=== PATIENT | female | born 1985 | race Caucasian/White ===

== ENCOUNTER 2020-04-26 14:10 | Outpatient (CLI) | payer MEDICAID | END 2020-04-26 23:59 | disposition home or self-care (01) | LOC: LAB.R 14:10 | PROVIDERS: ATTEND Emergency Medicine | DX: M70.42 Prepatellar bursitis, left knee (principal) | CPT/HCPCS: 81599; 87070; 87075; 87205 ==

== ENCOUNTER 2020-04-27 08:10 | Emergency (ER) | payer SELFPAY ==
--- NOTE | 2020-04-27 08:29 | ED Physician Documentation ---
PD HPI LOWER EXT INJURY - Stated complaint Stated Complaint: L KNEE PX - Chief complaint Chief Complaint: Ext Problem - History of Present Illness PD HPI LOW EXT INJURY LOCATION: Left, Knee Type of injury: Other (hurting) Where injury occurred: Home Timing - onset: How many days ago (3) Timing - duration: Days (3) Timing - details: Gradual onset, Still present Improved by: Rest, Immobilization Worsened by: Moving, Palpating Associated symptoms: Swelling, Discolored Contributing factors: No: Anticoagulated Similar symptoms before: Has not had sx before Recently seen: Clinic - Additional information Additional information: 34-year-old female who began to have some pain in her left knee 2 days ago spontaneously went [place]. Her knee was red and swollen and an arthrocentesis was done with removal of small amount of fluid. The patient was started on Bactrim and a culture is pending. She vomited her Bactrim Review of Systems Constitutional: reports: Myalgias. denies: Fever Eyes: denies: Decreased vision Ears: denies: Ear pain, Drainage/discharge Nose: denies: Rhinorrhea / runny nose, Congestion Throat: denies: Sore throat Cardiac: denies: Chest pain / pressure, Palpitations Respiratory: denies: Dyspnea, Cough GI: reports: Abdominal Pain, Nausea, Vomiting : denies: Dysuria, Frequency Skin: denies: Rash Musculoskeletal: reports: Joint pain, Joint swelling, Pain with weight bearing. denies: Neck pain, Back pain Neurologic: denies: Generalized weakness, Focal weakness, Numbness, Syncope PD PAST MEDICAL HISTORY - Past Medical History Past Medical History: Yes Cardiovascular: None Respiratory: None Neuro: None Endocrine/Autoimmune: None GI: None FINANCIAL REPORTING CONSULTANT: None : None HEENT: None Psych: None Musculoskeletal: None Derm: None - Past Surgical History Past Surgical History: Yes - Present Medications Home Medications: Ambulatory Orders Medication Instructions Recorded Confirmed Cephalexin [Keflex] 500 mg PO Q6H #28 capsule 04/27/20 Hydrocodone/Acetaminophen 1 - 2 each PO Q6H PRN #14 tablet 04/27/20 [Hydrocodon-Acetaminophen 5-325] Sulfamethox/Trimeth 800/160 04/27/20 [Bactrim Ds] - Allergies Allergies/Adverse Reactions: Allergies Allergy/AdvReac Type Severity Reaction Status Date / Time No Known Drug Allergies Allergy Verified 04/27/20 08:18 - Social History Does the pt smoke?: No Smoking Status: Never smoker Does the pt drink ETOH?: No Does the pt have substance abuse?: No - Immunizations Immunizations are current?: Yes PD ED PE NORMAL - Vitals Vital signs reviewed: Yes (tachy and hypertensive ) - General General: Alert and oriented X 3, Well developed/nourished, Other (34-year-old female who is in tears and pain.She appears anxious) - HEENT HEENT: Atraumatic, PERRL, EOMI - Neck Neck: Supple, no meningeal sign, No bony TTP - Respiratory Respiratory: No respiratory distress - Derm Derm: Normal color, Warm and dry, No rash - Extremities Extremities: No deformity, No edema, Other (There is tenderness warmth and erythema to the left knee. There is some mild swelling the patella is not ballotable and there is no direct joint effusion palpable. The patella is tender there is erythema overlying the patellar area extending medially and laterally. 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, No motor deficit, No sensory deficit, Normal speech Eye Opening: Spontaneous Motor: Obeys Commands Verbal: Oriented GCS Score: 15 - Psych Psych: Normal mood Results - Vitals Vitals: Vital Signs - 24 hr 04/27/20 04/27/20 04/27/20 08:16 08:18 10:18 Temperature 37.4 C Heart Rate 106 H 96 96 Respiratory 18 16 16 Rate Blood Pressure 123/59 L 128/60 136/74 H O2 Saturation 99 99 97 04/27/20 04/27/20 04/27/20 12:18 14:00 15:52 Temperature 36.8 C Heart Rate 92 90 96 Respiratory 16 18 16 Rate Blood Pressure 138/70 H 136/74 H 136/78 H O2 Saturation 97 99 96 Oxygen O2 Source Room air - Labs Labs: Laboratory Tests 04/27/20 04/27/20 04/27/20 09:16 09:16 09:16 WBC 16.1 H RBC 3.67 L Hgb 11.4 L Hct 32.9 L MCV 89.6 MCH 31.1 H MCHC 34.7 RDW 12.7 Plt Count 184 MPV 10.6 Neut # (Auto) 15.4 H Lymph # (Auto) 0.1 L [place] # (Auto) 0.5 Eos # (Auto) 0.0 Baso # (Auto) 0.1 Absolute Nucleated RBC 0.00 Nucleated RBC % 0.0 ESR Sodium 134 L Potassium 3.4 L Chloride 97 L Carbon Dioxide 23 Anion Gap 14.0 H BUN 20 Creatinine 0.8 Estimated GFR (MDRD) 82 L Glucose 144 H Lactic Acid 1.0 Uric Acid 3.5 Calcium 8.7 Total Bilirubin 0.4 AST 23 ALT 26 Alkaline Phosphatase 39 L C-Reactive Protein 9.7 H Total Protein 6.9 Albumin 5.0 Globulin 1.9 L Albumin/Globulin Ratio 2.6 H Lipase 33 04/27/20 09:16 WBC RBC Hgb Hct MCV MCH MCHC RDW Plt Count MPV Neut # (Auto) Lymph # (Auto) [place] # (Auto) Eos # (Auto) Baso # (Auto) Absolute Nucleated RBC Nucleated RBC % ESR 21 H Sodium Potassium Chloride Carbon Dioxide Anion Gap BUN Creatinine Estimated GFR (MDRD) Glucose Lactic Acid Uric Acid Calcium Total Bilirubin AST ALT Alkaline Phosphatase C-Reactive Protein Total Protein Albumin Globulin Albumin/Globulin Ratio Lipase PD MEDICAL DECISION MAKING - ED course Complexity details: reviewed results, re-evaluated patient, considered differential, d/w patient ED course: 34-year-old female with right left knee pain Appears to have cellulitis that is not improving and she appears to have intolerance to sulfamethoxazole trimethoprim. She has been vomiting this all night. Here in the emergency department an IV is begun she is given saline and she is given Toradol for pain. She has inadequate relief with Toradol and is given Dilaudid with improvement.We were unable to obtain results from the cell count from a specimen obtained yesterday and we were eventually able to track down Dr. Gregory donald and he was able to provide us with details of the visit. He indicates that she had pain and redness he thought she had cellulitis and because she had difficulty with pain with flexion extension he tapped the knee got a small amount of clear fluid which was sent for culture. There was not enough fluid to do a cell count. At one point we were unable to find any information from the days previous visit and after getting results back of the patient's laboratory studies with elevated white count and mildly elevated CRP and ESR I felt it important to get a sample of joint fluid for cell count. The patient was strongly opposed to this and our orthopedic doctor Dr. Biggs Was kind enough to come into the emergency department and evaluate the patient and her knee. He was able to address all of the information available and examined the patient and finds her most likely diagnosis as cellulitis and the patient is administered a gram of Rocephin intravenously and we will change her antibiotic to Keflex 500 4 times daily. A culture is pending on the fluid. The patient will follow-up with orthopedics. Departure - Departure Disposition: 01 Home, Self Care Clinical Impression: Cellulitis Qualifiers: Site of cellulitis: extremity Site of cellulitis of extremity: lower extremity Laterality: left Qualified Code(s): L03.116 - Cellulitis of left lower limb Condition: Stable Instructions: ED Infec Skin Cellulitis Follow-Up: Quintin Biggs MD [Provider Admit Priv/Credential] - Prescriptions: Hydrocodone/Acetaminophen [Hydrocodon-Acetaminophen 5-325] 1 - 2 each PO Q6H PRN #14 tablet PRN Reason: pain Cephalexin [Keflex] 500 mg PO Q6H #28 capsule Discharge Date/Time: 04/27/20 15:54
[2020-04-27] MEDS ORDERED: ONDANSETRON 4 MG/2 ML VIAL IVP STA (08:57)
[2020-04-27] MEDS ORDERED: SODIUM CHLORIDE 0.9% 1,000 ML IV STA ×3 (08:57→14:19)
[2020-04-27] MEDS ORDERED: KETOROLAC 30 MG/ML VIAL IVP STA (08:57)
[2020-04-27 09:27] LABS: BASOPHILS # (AUTO) 0.1 10^3/uL (0.0-0.1); BASOPHILS % (AUTO) 0.3 %; EOSINOPHILS % (AUTO) 0.2 %; HGB - HEMOGLOBIN 11.4 g/dL (12.0-16.0); LYMPHOCYTES # (AUTO) 0.1 10^3/uL (1.5-3.5); LYMPHOCYTES % (AUTO) 0.4 %; MEAN CORPUSCULAR HEMOGLOBIN 31.1 pg (27.0-31.0); MEAN CORPUSCULAR HGB CONC 34.7 g/dL (32.0-36.0); MEAN CORPUSCULAR VOLUME 89.6 fL (81.0-99.0); MEAN PLATELET VOLUME 10.6 fL (7.9-10.8); MONOCYTES # (AUTO) 0.5 10^3/uL (0.0-1.0); MONOCYTES % (AUTO) 3.2 %; NEUTROPHILS # (AUTO) 15.4 10^3/uL (1.5-6.6); NEUTROPHILS % (AUTO) 95.2 %; PLT - PLATELET COUNT 184 10^3/uL (130-450); RED BLOOD COUNT 3.67 10^6/uL (4.20-5.40); RED CELL DISTRIBUTION WIDTH 12.7 % (12.0-15.0); WHITE BLOOD COUNT 16.1 x10^3/uL (4.8-10.8)
[2020-04-27 09:50] LABS: ALBUMIN/GLOBULIN RATIO 2.6 (1.0-2.2); BILIRUBIN,TOTAL 0.4 mg/dL (0.2-1.0); CALCIUM 8.7 mg/dL (8.5-10.3); CREATININE 0.8 mg/dL (0.4-1.0); CRP - C-REACTIVE PROTEIN 9.7 mg/dL (0-1.0); TOTAL PROTEIN 6.9 g/dL (6.7-8.2); URIC ACID 3.5 mg/dL (2.6-7.2)
[2020-04-27] MEDS ORDERED: HYDROmorphone 1 MG/ML CARPUJECT IVP STA ×2 (09:53→14:01)
[2020-04-27] MEDS ORDERED: cefTRIAXone 1 GM in SODIUM CHLORIDE 0.9% MINIBAG 100 ML IV STA (13:10)
--- NOTE | 2020-04-27 13:33 | CONSULTATION NOTE ---
Referring Provider Name of Referring Provider:: shayne tompkins M.D. Consult Date: 04/27/20 (emergency room consult, orthopedic) Chief Complaint - Chief Complaint Chief Complaint: acute left knee pain, no injury History of Present Illness - History Obtained From Records Reviewed: discussed with referring physician History obtained from: patient Exam Limitations: none - History of Present Illness HPI Comment/Other: This is a relatively healthy 34-year-old woman who moved back to [facility] approximately 1 month ago. Prior to this period of time, she had been living in [facility]. On the morning of 04/26/2020 she awakened with pain to her left knee. Her initial steps are very painful and subsequent steps were . Her pain progressed and went to the outpatient clinic in [place] yesterday. She had the left knee aspirated. She states that a small amount of fluid was obtained but a pparently enough that the fluid could be sent for culture. She was given tramadol, ibuprofen and a prescription for Bactrim. After she returned home, approximately 7 PM yesterday evening, she took the medication but began to have emesis off and on throughout the night about every 1/2 hour to hour. She stopped taking all medications and only took 2 antibiotic pills. She states that it is unlikely that the antibiotic pills were absorbed since she had frequent emesis. She denies any injury to her left knee. Since yesterday she feels her pain has worsened and is associated with some swelling and redness. She can bear weight but with marked difficulty. She feels comfortable with the knee straight and has much pain when trying to bend her left knee. Most of the pain is over the anterior aspect of her left knee. She denies any penetrating injury, scratches or abrasions to the left knee area. She has had 1 or 2 surgeries to her left knee many years ago. 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 She has 2 small 1 mm sores below her left knee which she may have scratched for 5 days ago but she cannot recall for certain. She is normally healthy and active. She used to participate in sports in college and has stayed active physically since college. She denies any definite fever. She thinks she may have had some chills or perhaps sweats or both.She denies any systemic illnesses such as infection or arthropathy. She denies history of gout or pseudogout. 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 : reports: None HEENT: reports: None Psych: reports: None Musculoskeletal: reports: None Derm: reports: None MRSA Hx?: No Meds/Allgy - Home Medications Home Medications: Ambulatory Orders Medication Instructions Recorded Confirmed Sulfamethox/Trimeth 800/160 04/27/20 [Bactrim Ds] - Allergies Allergies/Adverse Reactions: Allergies Allergy/AdvReac Type Severity Reaction Status Date / Time No Known Drug Allergies Allergy Verified 04/27/20 08:18 Review of Systems - Musculoskeletal Musculoskeletal: reports: Limited range of motion, Joint swelling - Integumentary Integumentary: reports: Rash - Psychiatric Psychiatric: reports: Anxiety Exam - Vital Signs Reviewed Vital Signs: Yes Vital Signs: Vital Signs x48h Temp Pulse Resp BP Pulse Ox 04/27/20 08:18 96 16 128/60 99 04/27/20 08:16 37.4 C 106 H 18 123/59 L 99 - Physical Exam General Appearance: positive: Anxious Eyes Bilateral: positive: Normal inspection ENT: positive: ENT inspection nml Neck: positive: Nml inspection Respiratory: positive: No respiratory distress Cardiovascular: positive: Regular rate & rhythm Peripheral Pulses: positive: 2+ Back: positive: Nml inspection Skin: positive: Other (There are 2 noninfected 1 mm skin lesions below the knee joint on the left side laterally; she may have scratched these in the past few days but cannot definitely recall.) Extremities: positive: Other (The left knee shows mild swelling over the anterior aspect of the left knee with erythema. There is no joint effusion to left knee. There is no prepatellar swelling as the patella is easily palpable; no evidence for prepatellar bursitis. Skin is intact over the left knee.). negative: Joint swelling (There is no effusion or synovitis to the left knee joint. There is no lymphangitis or lymphadenopathy) Neurologic/Psychiatric: positive: Oriented x3, Motor nml, Sensation nml Conclusion and Plan - Lab Results Laboratory Results 04/27/20 09:16: ESR 21 H 04/27/20 09:16: Lactic Acid 1.0 04/27/20 09:16: Sodium 134 L, Potassium 3.4 L, Chloride 97 L, Carbon Dioxide 23, Anion Gap 14.0 H, BUN 20, Creatinine 0.8, Estimated GFR (MDRD) 82 L, Glucose 144 H, Uric Acid 3.5, Calcium 8.7, Total Bilirubin 0.4, AST 23, ALT 26, Alkaline Phosphatase 39 L, C-Reactive Protein 9.7 H, Total Protein 6.9, Albumin 5.0, Globulin 1.9 L, Albumin/Globulin Ratio 2.6 H, Lipase 33 04/27/20 09:16: WBC 16.1 H, RBC 3.67 L, Hgb 11.4 L, Hct 32.9 L, MCV 89.6, MCH 31.1 H, MCHC 34.7, RDW 12.7, Plt Count 184, MPV 10.6, Neut # (Auto) 15.4 H, Lymph # (Auto) 0.1 L, [place] # (Auto) 0.5, Eos # (Auto) 0.0, Baso # (Auto) 0.1, Absolute Nucleated RBC 0.00, Nucleated RBC % 0.0 The white blood cell count is elevated to 16,000, mild elevation of sed rate and C-reactive protein as well - Diagnosis Diagnosis: Cellulitis left knee area - Plan Plan: I recommend that the patient be admitted overnight to receive intravenous antibiotics. She declines to be admitted for observation. She agreed to outpatient treatment. I suggested to the emergency room physician a gram of Rocephin, prescription for Keflex 500 mg every 6 hours and to recheck in the emergency room tomorrow to make certain she is improving. I see no surgical indications at this time.
[2020-04-27 15:54] VITALS: BP 136/78
== END 2020-04-27 15:54 | disposition home or self-care (01) ==
LOC: ED 08:10
DX: L03.116 Cellulitis of left lower limb (principal); R11.2 Nausea with vomiting, unspecified
CPT/HCPCS: 36415; 80053; 83605; 83690; 84550; 85025; 85651; 86140; 87040; 96361; 96365; 96375; 96376; 99285; J1170

== ENCOUNTER 2020-04-29 13:51 | Observation (INO) | payer MEDICAID ==
[2020-04-29 14:27] LABS: BASOPHILS % (AUTO) 0.1 %; EOSINOPHILS # (AUTO) 0.5 10^3/uL (0.0-0.7); EOSINOPHILS % (AUTO) 6.4 %; HGB - HEMOGLOBIN 10.9 g/dL (12.0-16.0); LYMPHOCYTES # (AUTO) 0.8 10^3/uL (1.5-3.5); LYMPHOCYTES % (AUTO) 11.4 %; MEAN CORPUSCULAR HEMOGLOBIN 31.1 pg (27.0-31.0); MEAN CORPUSCULAR HGB CONC 34.9 g/dL (32.0-36.0); MEAN CORPUSCULAR VOLUME 89.1 fL (81.0-99.0); MONOCYTES # (AUTO) 0.4 10^3/uL (0.0-1.0); NEUTROPHILS # (AUTO) 5.6 10^3/uL (1.5-6.6); NEUTROPHILS % (AUTO) 75.7 %; PLT - PLATELET COUNT 191 10^3/uL (130-450); RED CELL DISTRIBUTION WIDTH 12.7 % (12.0-15.0); WHITE BLOOD COUNT 7.4 x10^3/uL (4.8-10.8)
[2020-04-29 14:39] LABS: ALBUMIN 4.5 g/dL (3.2-5.5); ALBUMIN/GLOBULIN RATIO 1.5 (1.0-2.2); BILIRUBIN,TOTAL 0.7 mg/dL (0.2-1.0); CREATININE 0.8 mg/dL (0.4-1.0); TOTAL PROTEIN 7.6 g/dL (6.7-8.2)
[2020-04-29] MEDS ORDERED: oxyCODONE 5 MG TABLET PO STA (15:07)
--- NOTE | 2020-04-29 15:08 | ED Physician Documentation ---
History of Present Illness - Stated complaint Stated Complaint: LT KNEE PX - Chief complaint Chief Complaint: Ext Problem - History obtained from History obtained from: Patient - History of Present Illness Timing: How many days ago (5) Pain level max: 9 Pain level now: 9 - Additonal information Additional information: L knee pain and swelling. worse with movement and better with rest. Seen here 2 days ago and started on abx. States not improved. Still cannot bear weight. no fever. no trauma. Review of Systems Ten Systems: 10 systems reviewed and negative Constitutional: denies: Fever, Chills Ears: denies: Ear pain Nose: denies: Rhinorrhea / runny nose, Congestion GI: denies: Nausea, Vomiting, Diarrhea : denies: Dysuria, Now EGA Skin: denies: Rash Musculoskeletal: denies: Neck pain, Back pain Neurologic: denies: Headache PD PAST MEDICAL HISTORY - Past Medical History Cardiovascular: None Respiratory: None Neuro: None Endocrine/Autoimmune: None GI: None TITLE CHECKER: None : None HEENT: None Psych: None Musculoskeletal: None Derm: None - Past Surgical History Past Surgical History: Yes - Present Medications Home Medications: Ambulatory Orders Medication Instructions Recorded Confirmed Cephalexin [Keflex] 500 mg PO Q6H #28 capsule 04/27/20 Hydrocodone/Acetaminophen 1 - 2 each PO Q6H PRN #14 tablet 04/27/20 [Hydrocodon-Acetaminophen 5-325] Sulfamethox/Trimeth 800/160 04/27/20 [Bactrim Ds] - Allergies Allergies/Adverse Reactions: Allergies Allergy/AdvReac Type Severity Reaction Status Date / Time No Known Drug Allergies Allergy Verified 04/27/20 08:18 - Social History Does the pt smoke?: No Smoking Status: Never smoker Does the pt drink ETOH?: No Does the pt have substance abuse?: No - Immunizations Immunizations are current?: Yes PD ED PE NORMAL - Vitals Vital signs reviewed: Yes - General General: Alert and oriented X 3, No acute distress - HEENT HEENT: Moist mucous membranes - Neck Neck: Supple, no meningeal sign - Cardiac Cardiac: RRR - Respiratory Respiratory: No respiratory distress, Clear bilaterally - Derm Derm: Warm and dry - Extremities Extremities: Other (mild joint effusion. TTP over the medial aspect of the knee. minimal erythema. ) - Neuro Neuro: Alert and oriented X 3 - Psych Psych: Normal mood, Normal affect Results - Vitals Vitals: Vital Signs - 24 hr 04/29/20 04/29/20 04/29/20 13:56 14:59 15:30 Temperature 37 C Heart Rate 83 80 82 Respiratory 18 16 16 Rate Blood Pressure 124/31 L 112/64 115/65 O2 Saturation 99 99 99 04/29/20 17:00 Temperature Heart Rate 85 Respiratory 16 Rate Blood Pressure 122/64 O2 Saturation 99 Oxygen O2 Source Room air - Labs Labs: Laboratory Tests 04/29/20 04/29/20 04/29/20 14:13 14:13 14:13 WBC 7.4 RBC 3.50 L Hgb 10.9 L Hct 31.2 L MCV 89.1 MCH 31.1 H MCHC 34.9 RDW 12.7 Plt Count 191 MPV 11.0 H Neut # (Auto) 5.6 Lymph # (Auto) 0.8 L [place] # (Auto) 0.4 Eos # (Auto) 0.5 Baso # (Auto) 0.0 Absolute Nucleated RBC 0.00 Nucleated RBC % 0.0 ESR 50 H Sodium 136 Potassium 3.7 Chloride 102 Carbon Dioxide 25 Anion Gap 9.0 BUN 13 Creatinine 0.8 Estimated GFR (MDRD) 82 L Glucose 89 Uric Acid Calcium 9.0 Total Bilirubin 0.7 AST 25 ALT 26 Alkaline Phosphatase 46 C-Reactive Protein Total Protein 7.6 Albumin 4.5 Globulin 3.1 Albumin/Globulin Ratio 1.5 Lipase 24 04/29/20 04/29/20 14:13 15:00 WBC RBC Hgb Hct MCV MCH MCHC RDW Plt Count MPV Neut # (Auto) Lymph # (Auto) [place] # (Auto) Eos # (Auto) Baso # (Auto) Absolute Nucleated RBC Nucleated RBC % ESR Sodium Potassium Chloride Carbon Dioxide Anion Gap BUN Creatinine Estimated GFR (MDRD) Glucose Uric Acid 4.2 Calcium Total Bilirubin AST ALT Alkaline Phosphatase C-Reactive Protein 10.3 H Total Protein Albumin Globulin Albumin/Globulin Ratio Lipase - Rads (name of study) Left knee x-ray Radiology: Prelim report reviewed, EMP read contemporaneously, See rad report (No fracture. No osseous lesion) PD MEDICAL DECISION MAKING - ED course Complexity details: reviewed results, re-evaluated patient, considered differential, d/w patient, d/w family ED course: Unclear etiology of her symptoms. Upon repeat evaluation her pain had increased, there was increasing erythema over the prepatellar space. Increasing swelling as well. Given her increasing pain and increasing erythema and swelling, we will place in the hospital for IV antibiotics and further observation. Discussed the case with Dr. Biggs orthopedics who will consult. Also discussed with Dr. Madden, hospitalist who accepts. Appears to be a prepatellar cellulitis/bursitis. This document was made in part using voice recognition software. While efforts are made to proofread this document, sound alike and grammatical errors may occur. Departure - Departure Disposition: ED Place in Observation Clinical Impression: Cellulitis Qualifiers: Site of cellulitis: extremity Site of cellulitis of extremity: lower extremity Laterality: left Qualified Code(s): L03.116 - Cellulitis of left lower limb Condition: Stable Discharge Date/Time: 04/29/20 17:46
[2020-04-29] MEDS ORDERED: KETOROLAC 30 MG/ML VIAL IVP STA (15:16)
--- NOTE | 2020-04-29 16:09 | XRAY Report ---
PROCEDURE: Knee 3 View LT INDICATIONS: L knee pain, swelling TECHNIQUE: 3 views of the left knee(s) were acquired. COMPARISON: None. FINDINGS: Bones: No fractures or dislocations. No suspicious bony lesions. No osseous erosive changes. No per iosteal reaction. Soft tissues: No joint effusion. No suspicious soft tissue calcifications. No soft tissue gas. Prep atellar soft tissue swelling. IMPRESSION: No fracture. No osseous lesion. If there is continued clinical concern for pathology, then repeat pollo in film radiographs (7-10 days) or advanced imaging (CT, MR, bone scan) should be considered for furt her evaluation. Reviewed by: Roshni Suggs MD, PhD on 04/29/2020 4:07 PM PDT Approved by: Roshni Suggs MD, PhD on 04/29/2020 4:07 PM PDT Station ID: [id number]
[2020-04-29] MEDS ORDERED: cefTRIAXone 1 GM VIAL IVP STA (16:26)
[2020-04-29] MEDS ORDERED: HYDROmorphone 1 MG/ML CARPUJECT IVP STA (16:57)
[2020-04-29] MEDS ORDERED: VANCOMYCIN INJ 1 GM in SODIUM CHLORIDE 0.9% 500 ML IV STA (16:57)
[2020-04-29] MEDS ORDERED: ONDANSETRON ODT 4 MG TABLET TL PRN (17:05)
[2020-04-29] MEDS ORDERED: ONDANSETRON 4 MG/2 ML VIAL IVP PRN (17:05)
--- NOTE | 2020-04-29 17:13 | HISTORY & PHYSICAL EXAMINATION ---
Chief Complaint - Chief Complaint Chief Complaint: Left knee pain History of Present Illness - Admitted From Admitted From:: Home - History Obtained From Records Reviewed: Yes History obtained from: Patient, ER Physician, EMR - History of Present Illness HPI Comment/Other: This is a pleasant 34-year-old female with no significant past medical history who presents today complaining of left knee pain. She states her symptoms initially began Wednesday morning when she woke up with left knee swelling and pain. She reports going to sleep night in her usual state of health. She saw a walk-in clinic in [place], [place] where they attempted to obtain fluid from the joint given she had a small effusion. This was reportedly sent for cultures but not for cell count as there was not enough fluid. She was started on Bactrim at that time but she reports she had nausea and vomiting secondary to the antibiotics and so she was seen on April 27 here in the emergency department. Her white count at that time was 16.1 and her CRP was elevated at nearly 10 as well as her ESR at 25. She was evaluated by orthopedic surgery at that time and observation was recommended for IV antibiotics which she reportedly declined. She was given IV ceftriaxone in the emergency department and discharged on oral Keflex. She reported developing hives seco ndary to the Keflex but this has resolved. She does not recall any allergies to her knowledge. She states since has been home her pain has not gotten worse but her swelling continued to become more prominent. She has only noticed mild redness over her knee but she feels like her pain is spreading throughout the knee. The pain is worse with movement and knee flexion. Given the worsening edema, she sought medical attention today. She reports no fevers or chills at home. She denies any history of rheumatoid arthritis or family history of rheumatoid arthritis although her grandmother did have some type of arthritis. She reports no similar symptoms in the past. She has no numbness in her lower extremities. She denies IV drug use. She reports she normally picks at her skin and she did have a skin infection in her upper extremities in the past but nothing recent. She did note that when she was shaving her legs about 1 month ago, she had multiple skin wounds over her lower extremities which resolved on their own. She reports she is normally quite active. In the emergency department, she is found to be afebrile temperature of 37 C. Her heart rate was 83. Her blood pressure was 112/64. She was not tachypneic and saturating well on room air. Her white count had improved to 7.4 but her ESR is now elevated to 50 and her CRP continues to climb and is now 10.3. X-ray of the left knee showed no acute abnormalities. Given she had failed outpatient biotics, medicine was consulted for admission for IV antibiotics. The emergency department provider did speak with orthopedics who recommended placing the patient on an IV cephalosporin.. 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 Living arrangement: At home Social History Notes: She recently moved here from [place] about 1 month ago. Her partner, Lori has been visiting for the past 2 days. She reports occasional alcohol use but denies smoking. She does use occasional marijuana but denies IV drug use. - Substance History Use: Uses substance without health or social issues: NONE Meds/Allgy - Home Medications Home Medications: Ambulatory Orders Medication Instructions Recorded Confirmed Cephalexin [Keflex] 500 mg PO Q6H #28 capsule 04/27/20 Hydrocodone/Acetaminophen 1 - 2 each PO Q6H PRN #14 tablet 04/27/20 [Hydrocodon-Acetaminophen 5-325] Sulfamethox/Trimeth 800/160 04/27/20 [Bactrim Ds] - Allergies Allergies/Adverse Reactions: Allergies Allergy/AdvReac Type Severity Reaction Status Date / Time No Known Drug Allergies Allergy Verified 04/27/20 08:18 Review of Systems - Constitutional Constitutional: denies: Fatigue, Fever, Chills, Weakness, Poor appetite - Ears, Nose & Throat Ears, Nose & Throat: denies: Nasal congestion, Sore throat - Cardiovascular Cariovascular: denies: Chest pain, Exertional dyspnea, Decr. exercise tolerance - Respiratory Respiratory: denies: SOB at rest, SOB with exertion - Gastrointestinal Gastrointestinal: reports: Nausea, Vomiting. denies: Abdominal pain, Abdominal distention - Genitourinary Genitourinary: denies: Dysuria, Frequency, Urgency - Musculoskeletal Musculoskeletal: reports: Stiffness, Limited range of motion, Joint pain, Joint swelling. denies: Muscle pain, Muscle aches, Gout - Integumentary Integumentary: reports: Rash - Neurological Neurological: denies: General weakness, Focal weakness, Headache, Numbness - Hematologic/Lymphatic Hematologic/Lymphatic: denies: Anemia - All Other Systems All Other Systems: reports: Reviewed and negative Prior Level of Functionality: She is independent with her ADL's. Exam - Vital Signs Reviewed Vital Signs: Yes Vital Signs: Vital Signs x48h Temp Pulse Resp BP Pulse Ox 04/29/20 15:30 82 16 115/65 99 04/29/20 14:59 80 16 112/64 99 04/29/20 13:56 37 C 83 18 124/31 L 99 - Physical Exam General Appearance: positive: No acute distress, Alert Eyes Bilateral: positive: Normal inspection ENT: positive: ENT inspection nml Neck: positive: Nml inspection Respiratory: positive: No respiratory distress. negative: Wheezes, Rales, Rhonchi Cardiovascular: positive: Regular rate & rhythm, No murmur. negative: Tachycardia, Bradycardia, Systolic murmur, Diastolic murmur Abdomen: positive: Non-tender, No distention. negative: Tenderness, Guarding, Rebound Skin: positive: Warm, Dry Extremities: positive: No pedal edema, Calf tenderness, Joint swelling (Her left knee is swollen compared to her right knee but there is no obvious effusion. There is minimal erythema. The knee is tender throughout. Range of motionis limited secondary to pain but she is able to flex the knee. No obvious wounds or lesions noted) Neurologic/Psychiatric: positive: Oriented x3, Motor nml, Sensation nml. negative: Disoriented to person, Disoriented to place, Disoriented to time Conclusion/Plan - Problem List (1) Cellulitis of left knee Conclusion/Plan: She presents with worsening left knee pain and erythema. Imaging is unremarkable. Although her white count has improved, her ESR and CRP have increased. She also failed outpatient treatment with Keflex. We will place her in observation and start her on IV ceftriaxone as recommended by orthopedics. We will trend CBC, ESR, CRP. Pain control with Tylenol, ibuprofen, oxycodone as needed. Orthopedics consult. - Lab Results Lab results reviewed: Yes Fish Bones: 04/29/20 14:13 04/29/20 14:13 - Diagnostic Imaging Results Diagnostic Imaging Results: positive: Final report reviewed Core Measures - Anticipated LOS I expect patient to be DC'd or transferred within 96 hours.: Yes - Issues Hospital Issues and Management Plan: 34-year-old female with left knee cellulitis and failed outpatient treatment with antibiotics. We will place in observation for IV antibiotics and orthopedics consult. - DVT/VTE - Prophylaxis VTE/DVT Device ordered at admit?: Yes VTE/DVT Prophylaxis med ordered at admit?: No Not Ordered - Medical Reason: Not indicated
[2020-04-29] MEDS ORDERED: KETOROLAC 30 MG/ML VIAL IVP PRN (18:26)
[2020-04-29] MEDS: oxyCODONE 5 MG TABLET PO PRN (19:06)
[2020-04-29] MEDS: ACETAMINOPHEN 325 MG TABLET PO PRN (19:07)
[2020-04-29] MEDS: SODIUM CHLORIDE FLUSH 0.9% 10 ML SYRINGE IVP PRN (19:56)
[2020-04-29] MEDS ORDERED: diphenhydrAMINE INJ 50 MG/ML VIAL IVP PRN (20:38)
[2020-04-29] MEDS: HYDROmorphone 2 MG/ML VIAL IVP PRN ×2 (20:55→23:39)
[2020-04-29] MEDS: SODIUM CHLORIDE FLUSH 0.9% 10 ML SYRINGE IVP SCH (23:39)
[2020-04-30] MEDS: HYDROmorphone 2 MG/ML VIAL IVP PRN ×4 (01:45→08:52)
[2020-04-30] MEDS: IBUPROFEN 600 MG TABLET PO PRN ×2 (01:45→10:09)
[2020-04-30] MEDS: SODIUM CHLORIDE FLUSH 0.9% 10 ML SYRINGE IVP PRN ×2 (01:45→08:51)
[2020-04-30] MEDS: SODIUM CHLORIDE FLUSH 0.9% 10 ML SYRINGE IVP SCH (03:42)
[2020-04-30 05:43] LABS: BASOPHILS % (AUTO) 0.2 %; EOSINOPHILS # (AUTO) 0.4 10^3/uL (0.0-0.7); EOSINOPHILS % (AUTO) 7.6 %; HGB - HEMOGLOBIN 9.6 g/dL (12.0-16.0); LYMPHOCYTES # (AUTO) 1.4 10^3/uL (1.5-3.5); LYMPHOCYTES % (AUTO) 29.9 %; MEAN CORPUSCULAR HEMOGLOBIN 30.7 pg (27.0-31.0); MEAN CORPUSCULAR HGB CONC 33.7 g/dL (32.0-36.0); MEAN CORPUSCULAR VOLUME 91.1 fL (81.0-99.0); MEAN PLATELET VOLUME 11.3 fL (7.9-10.8); MONOCYTES # (AUTO) 0.5 10^3/uL (0.0-1.0); MONOCYTES % (AUTO) 11.3 %; NEUTROPHILS # (AUTO) 2.4 10^3/uL (1.5-6.6); NEUTROPHILS % (AUTO) 50.8 %; PLT - PLATELET COUNT 163 10^3/uL (130-450); RED BLOOD COUNT 3.13 10^6/uL (4.20-5.40); RED CELL DISTRIBUTION WIDTH 12.8 % (12.0-15.0); WHITE BLOOD COUNT 4.6 x10^3/uL (4.8-10.8)
[2020-04-30 05:58] LABS: CALCIUM 8.5 mg/dL (8.5-10.3); CREATININE 0.7 mg/dL (0.4-1.0); CRP - C-REACTIVE PROTEIN 6.5 mg/dL (0-1.0)
[2020-04-30] MEDS ORDERED: D5.45NS W/20 MEQ KCL 1,000 ML IV SCH (08:13)
[2020-04-30] MEDS ORDERED: cefTRIAXone 2 GM in SODIUM CHLORIDE 0.9% MINIBAG 100 ML IV SCH (09:00)
[2020-04-30] MEDS ORDERED: HYDROmorphone 1 MG/ML CARPUJECT IVP PRN (09:14)
[2020-04-30] MEDS: oxyCODONE 5 MG TABLET PO PRN ×2 (10:09→14:41)
--- NOTE | 2020-04-30 10:13 | PHARMACY PROGRESS NOTE ---
- Best Possible Medication History Admit Date and Time: 04/29/20 9291 Processed by: Pharmacy Medication History completed: Yes Patient Interview: Completed Secondary Source(s): Physician records As the person ultimately responsible for medication therapy, providers are able to order a medication from an existing home medication list in [facility] via the "Reconcile Routine" prior to Confirmation of that medication by coding support specialist. Such practice is discouraged except when the physician, in their clinical judgment, deems that a medical need exists for a medication without regard to previous use.
--- NOTE | 2020-04-30 12:03 | CONSULTATION NOTE ---
Referring Provider Name of Referring Provider:: Dr. Sharma Consult Date: 04/30/20 (seen in the emergency room previous date) Chief Complaint - Chief Complaint Chief Complaint: left knee pain, swelling and redness History of Present Illness - Admitted From Admitted From:: emergency room - History Obtained From Records Reviewed: yes History obtained from: patient - History of Present Illness HPI Comment/Other: This is a 34-year-old woman who is seen in consultation for left knee pain, associated redness and swelling that developed spontaneously beginning last week. I saw her in the emergency room this past weekend and felt she had a cellulitis overlying the left knee, not a prepatellar bursitis or septic knee. She was discharged from the emergency room after receiving intravenous cephalosporin and then oral medications in the form of Keflex 500 mg every 6 hours. She returned to the emergency room yesterday without improvement and again complaining of pain with weightbearing, swelling and redness to the left knee. She gives no history of injury or penetrating injury. She has no history of polyarthralgias, no fever or chills. She denies any recent shaving of skin but she tends to scratch her skin and has had previous soft tissue infections involving upper extremity. She denies drug abuse or illicit use of drugs. Since hospitalization on 04/29/2020, she notes definite interval improvement with less pain, redness and swelling. History - Past Medical History Cardiovascular: reports: None Respiratory: reports: None Neuro: reports: None Endocrine/Autoimmune: reports: None GI: reports: None PROFESSOR OF EDUCATION: reports: None : reports: None HEENT: reports: None Psych: reports: None Musculoskeletal: reports: None Derm: reports: None MRSA Hx?: No - Past Surgical History Ortho: reports: Arthroscopic surgery (Left knee over 20 years ago.) - Family & Social History Family History Comment/Other: She reports her grandmother had a history of arthritis but otherwise no significant family history. Living arrangement: At home Social History Notes: She recently moved here from [place] about 1 month ago. Her partner, Lori has been visiting for the past 2 days. She reports occasional alcohol use but denies smoking. She does use occasional marijuana but denies IV drug use. - Substance History Use: Uses substance without health or social issues: NONE Meds/Allgy - Home Medications Home Medications: Ambulatory Orders Medication Instructions Recorded Confirmed No Known Home Medications 04/30/20 04/30/20 - Allergies Allergies/Adverse Reactions: Allergies Allergy/AdvReac Type Severity Reaction Status Date / Time cephalexin [From Keflex] Allergy Rash Verified 04/30/20 07:30 Review of Systems - Musculoskeletal Musculoskeletal: reports: Joint swelling Exam - Vital Signs Vital Signs: Vital Signs x48h Temp Pulse Resp BP Pulse Ox 04/30/20 11:10 36.3 C L 68 16 117/74 100 04/30/20 07:35 36.6 C 61 16 117/74 96 - Physical Exam General Appearance: positive: No acute distress, Alert Peripheral Pulses: positive: 2+ Skin: positive: No rash Neurologic/Psychiatric: positive: Oriented x3, Other (Left knee shows prepatellar swelling, mild erythema but no prepatellar effusion or knee joint effusion. She has full extension, 60 degrees of flexion active. Skin is intact. There is no lymphadenopathy. The knee joint stable, left.) Conclusion and Plan - Lab Results Laboratory Results 04/30/20 05:05: Sodium 139, Potassium 3.5, Chloride 103, Carbon Dioxide 27, Anion Gap 9.0, BUN 10, Creatinine 0.7, Estimated GFR (MDRD) 96, Glucose 91, Calcium 8.5, C-Reactive Protein 6.5 H 04/30/20 05:05: ESR 36 H 04/30/20 05:05: WBC 4.6 L, RBC 3.13 L, Hgb 9.6 L, Hct 28.5 L, MCV 91.1, MCH 30.7, MCHC 33.7, RDW 12.8, Plt Count 163, MPV 11.3 H, Neut # (Auto) 2.4, Lymph # (Auto) 1.4 L, Shoshone # (Auto) 0.5, Eos # (Auto) 0.4, Baso # (Auto) 0.0, Absolute Nucleated RBC 0.00, Nucleated RBC % 0.0 04/29/20 15:00: Uric Acid 4.2 04/29/20 14:13: C-Reactive Protein 10.3 H 04/29/20 14:13: ESR 50 H 04/29/20 14:13: Sodium 136, Potassium 3.7, Chloride 102, Carbon Dioxide 25, Anion Gap 9.0, BUN 13, Creatinine 0.8, Estimated GFR (MDRD) 82 L, Glucose 89, Calcium 9.0, Total Bilirubin 0.7, AST 25, ALT 26, Alkaline Phosphatase 46, Total Protein 7.6, Albumin 4.5, Globulin 3.1, Albumin/Globulin Ratio 1.5, Lipase 24 // 14:13: WBC 7.4, RBC 3.50 L, Hgb 10.9 L, Hct 31.2 L, MCV 89.1, MCH 31.1 H, MCHC 34.9, RDW 12.7, Plt Count 191, MPV 11.0 H, Neut # (Auto) 5.6, Lymph # (Auto) 0.8 L, Shoshone # (Auto) 0.4, Eos # (Auto) 0.5, Baso # (Auto) 0.0, Absolute Nucleated RBC 0.00, Nucleated RBC % 0.0 - Diagnostic Imaging Results Diagnostic Imaging Results: positive: Read independently (There are normal bone and joint structures left knee without knee joint effusion) - Diagnosis Diagnosis: Left kneeCellulitis - Plan Plan: I agree with the present plan of treatment with intravenous antibiotics, converting to oral antibiotics on discharge for approximately 7 days. I do not see any evidence of a septic prepatellar bursitis or septic knee joint. I do not see any evidence for the need of surgery. Her abnormal lab values and exam are consistent with a cellulitis overlying the left knee area. She is responding to treatment since being hospitalized. I encouraged her to minimize her activity after discharge especially for the first week. I discussed this case with her hospitalist today.
[2020-04-30] MEDS: ACETAMINOPHEN 325 MG TABLET PO PRN (12:37)
[2020-04-30] MEDS ORDERED: CEFPODOXIME PROXETIL 100 MG TABLET PO SCH ×2 (14:00)
--- NOTE | 2020-04-30 14:56 | Discharge Plan ---
Discharge Plan Problem Reviewed?: Yes Disposition: Home, Self Care Condition: Stable Prescriptions: oxyCODONE [Roxicodone] 10 mg PO Q6H PRN #30 tablet PRN Reason: Pain Cefpodoxime Proxetil [Vantin] 200 mg PO BID #28 tablet Diet: Regular Activity Restrictions: No Restrictions Shower Restrictions: No (fall precaution) Instruction Topics: Cefpodoxime tablets, Oxycodone tablets or capsules, Cellulitis [facility] Health Concerns: cellulitis Plan of Treatment: You were found to have left knee cellulitis. you are prescribed antibiotics and pain meds to finish the treatment course. you are encouraged to minimize your activity for your left knee after discharge especially for the first week. Care Goals: stabilization and improvement/cure of your medical conditions. Assessment: discussed the care plan with you, you understood and agreed. Additional Instructions or Follow Up instructions: You may follow-up with your PCP in 1 to 2 weeks. Should your symptoms return or worsen, you may present ER or call 911 for help. No Smoking: If you smoke, Please STOP! Call for help.
--- NOTE | 2020-04-30 15:03 | DISCHARGE SUMMARY ---
"Discharge Summary Admit Date: 04/29/20 Discharge Date: 04/30/20 Discharging Provider: John Hyman Condition at Discharge: Stable Discharge Disposition: 01 Home, Self Care Discharge Facility Name: home - DIAGNOSES Discharge Diagnoses with Status of Each Condition: (1) Cellulitis of left knee clinically Left knee has no erythema, no edema or swelling, patient report knee pain is much better controlled. Patient has no fever or chilling. Pt has no elevated WBC. CRP and ESR continue trending down. Orthopedics consulted with pt, and Discharged patient. Patient also really want to go to home today. Patient is prescribed antibiotics Vantin and pain medication oxycodone. Patient was given Rocephin, and no allergy in hospital. (2)skin picking Patient has history of skin picking, advised the patient follow-up with her psychiatrist to control her picking skin behaviour, and control skin injury and infection. - [facility] History of Present Illness: refer from Dr. Sharma's HPI on 04/29/2020 This is a pleasant 34-year-old female with no significant past medical history who presents today complaining of left knee pain. She states her symptoms initially began Wednesday morning when she woke up with left knee swelling and pain. She reports going to sleep night in her usual state of health. She saw a walk-in clinic in [place], [place] where they attempted to obtain fluid from the joint given she had a small effusion. This was reportedly sent for cultures but not for cell count as there was not enough fluid. She was started on Bactrim at that time but she reports she had nausea and vomiting secondary to the antibiotics and so she was seen on April 27 here in the emergency department. Her white count at that time was 16.1 and her CRP was elevated at nearly 10 as well as her ESR at 25. She was evaluated by orthopedic surgery at that time and observation was recommended for IV antibiotics which she reportedly declined. She was given IV ceftriaxone in the emergency depar tment and discharged on oral Keflex. She reported developing hives secondary to the Keflex but this has resolved. She does not recall any allergies to her knowledge. She states since has been home her pain has not gotten worse but her swelling continued to become more prominent. She has only noticed mild redness over her knee but she feels like her pain is spreading throughout the knee. The pain is worse with movement and knee flexion. Given the worsening edema, she sought medical attention today. She reports no fevers or chills at home. She denies any history of rheumatoid arthritis or family history of rheumatoid arthritis although her grandmother did have some type of arthritis. She reports no similar symptoms in the past. She has no numbness in her lower extremities. She denies IV drug use. She reports she normally picks at her skin and she did have a skin infection in her upper extremities in the past but nothing recent. She did note that when she was shaving her legs about 1 month ago, she had multiple skin wounds over her lower extremities which resolved on their own. She reports she is normally quite active. In the emergency department, she is found to be afebrile temperature of 37 C. Her heart rate was 83. Her blood pressure was 112/64. She was not tachypneic and saturating well on room air. Her white count had improved to 7.4 but her ESR is now elevated to 50 and her CRP continues to climb and is now 10.3. X-ray of the left knee showed no acute abnormalities. Given she had failed outpatient biotics, medicine was consulted for admission for IV antibiotics. The emergency department provider did speak with orthopedics who recommended placing the patient on an IV cephalosporin - CONSULTS | PROCEDURES Consultations: Dr. Quintin Biggs Procedures: no procedure - HOSPITAL COURSE Hospital Course: Patient was admitted for left knee pain, patient has history of skin picking behavior. it is likely caused skin injury and infection by her skin picking behavior. 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 X-ray of left knee was unremarkable. Patient was treated with antibiotics Rocephin For left knee cellulitis. Patient was in response for Rocephin antibiotics very well. Patient has no more swollen, erythema in the left knee and the pain is good control. CRP and ESR continue trending down. Orthopedic surgeon see the patient and discharged patient. Patient was prescribed antibiotics Vantin and pain medication oxycodone for discharge. - ALLERGIES Allergies/Adverse Reactions: Allergies Allergy/AdvReac Type Severity Reaction Status Date / Time cephalexin [From Keflex] Allergy Rash Verified 04/30/20 07:30 - MEDICATIONS Home Medications: Ambulatory Orders Medication Instructions Recorded Confirmed Cefpodoxime Proxetil [Vantin] 200 mg PO BID #28 tablet 04/30/20 oxyCODONE [Roxicodone] 10 mg PO Q6H PRN #30 tablet 04/30/20 - PHYSICAL EXAM AT DISCHARGE General Appearance: positive: No acute distress, Alert. negative: Lethargic Eyes Bilateral: positive: Normal inspection, PERRL, No lid inflammation ENT: positive: ENT inspection nml, Pharynx nml, No signs of dehydration. negative: Purulent nasal drainage Neck: positive: Nml inspection, Thyroid nml, Trachea midline. negative: Thyromegaly, Stiff neck, Tracheal deviation Respiratory: positive: Chest non-tender, No respiratory distress, Breath sounds nml. negative: Wheezes, Rales, Rhonchi Cardiovascular: positive: Regular rate & rhythm, No murmur, No gallop. negative: Tachycardia, Bradycardia, Systolic murmur, Diastolic murmur Peripheral Pulses: positive: 2+ Abdomen: positive: Non-tender, No organomegaly, Nml bowel sounds, No distention. negative: Tenderness, Guarding, Rebound Back: positive: Nml inspection. negative: CVA tenderness (R), CVA tenderness (L) Skin: positive: Color nml, No rash, Warm, Dry. negative: Cyanosis, Diaphoresis, Pallor, Skin rash Extremities: positive: Non-tender, Full ROM, Nml appearance, Other (left knee has no more redness or swelling, and has full-ROM. ). negative: Calf tenderness, Teto's sign/cords Neurologic/Psychiatric: positive: Oriented x3, Motor nml, Sensation nml, Mood/affect nml. negative: Weakness, Sensory loss, Facial droop, Slurred/abnml speech, Depressed mood/affect - LABS Result Diagrams: 04/30/20 05:05 04/30/20 05:05 - FOLLOW UP Follow Up: You were found to have left knee cellulitis. you are prescribed antibiotics and pain meds to finish the treatment course. you are encouraged to minimize your activity for your left knee after discharge especially for the first week. You may follow-up with your PCP in 1 to 2 weeks. Should your symptoms return or worsen, you may present ER or call 911 for help. - TIME SPENT Time Spent in Discharge (Minutes): 30"
[2020-04-30 16:42] VITALS: BP 128/79
== END 2020-04-30 15:47 | disposition home or self-care (01) ==
LOC: ED 13:51 → MS2 17:05
PROVIDERS: ADMIT Internal Medicine; ATTEND Nurse Practitioner Gerontology
DX: L03.116 Cellulitis of left lower limb (principal); F42.4 Excoriation (skin-picking) disorder
CPT/HCPCS: 36415; 73562; 80048; 80053; 83690; 84550; 85025; 85651; 86140; 96365; 96366; 96367; 96375; 96376; 99285; A9270; G0378; J1170; J1200; J3370

== ENCOUNTER 2020-05-08 15:35 | Outpatient (CLI) | payer MEDICAID ==
--- NOTE | 2020-05-08 17:10 | XRAY Report ---
PROCEDURE: Knee 3 View LT INDICATIONS: KNEE PAIN, LEFT TECHNIQUE: 3 views of the left knee(s) were acquired. COMPARISON: X-ray knee 04/29/2020. FINDINGS: Bones: No fractures or dislocations. No suspicious bony lesions. Soft tissues: Mild joint effusion. No suspicious soft tissue calcifications. IMPRESSION: Mild effusion. Stable interval exam. If clinical concern persists, MRI is recommended fo r further evaluation. Reviewed by: Eileen Morales MD on 05/08/2020 5:09 PM PDT Approved by: Eileen Morales MD on 05/08/2020 5:09 PM PDT Station ID: [id number]
== END 2020-05-08 15:36 | disposition home or self-care (01) ==
LOC: DI.S 15:35
PROVIDERS: ATTEND Family Medicine
DX: M25.462 Effusion, left knee (principal)

== ENCOUNTER 2020-05-31 16:43 | Outpatient (CLI) | payer MEDICAID ==
[2020-05-31] MEDS ORDERED: GADOBUTROL 7.5 MMOL/7.5 ML VIAL ONE (17:23)
[2020-05-31] MEDS ORDERED: GADOBUTROL 7.5 MMOL/7.5 ML VIAL IVP ONE (17:24)
--- NOTE | 2020-06-03 09:26 | MRI Report ---
PROCEDURE: Knee LT W/WO INDICATIONS: LEFT KNEE PAIN CONTRAST: IV CONTRAST: Gadavist ml: 6 TECHNIQUE: Noncontrast sagittal PD fast spin echo and T2 fast spin echo with fat saturation, sagittal 3-D spoile d GE with fat saturation; coronal T1 spin echo and PD fast spin echo with fat saturation, and axial T 1 spin echo and PD fast spin echo with fat saturation through the knee. Post-contrast axial, coronal , and sagittal T1 spin echo with fat saturation through the knee. COMPARISON: None. FINDINGS: Image quality: Excellent. Menisci: Medial meniscus intact. Lateral meniscus intact. Cruciate ligaments: Anterior cruciate ligament appears intact. Posterior cruciate ligament appears intact. Medial structures: The medial collateral ligament appears intact. The semimembranosus tendon appears intact. Visualized portions of the pes anserinus tendons appear normal. No abnormal bursal fluid. Lateral structures: Lateral collateral ligament appears grossly intact. Biceps femoris tendon appears intact. Iliotibial band within normal limits. Popliteus tendon within normal limits. Anterior structures: Mild patellar tendinopathy, with prepatellar and superficial infrapatellar edema. The quadriceps tendon appears intact. Mild thickening of the medial patellofemoral ligament. Lateral patellofemoral ligament appears intact . Patellar alignment is normal. Hoffa's fat pad unremarkable. Bones and cartilage: No bone marrow contusions or fractures. Within the medial compartment, no focal cartilage defect Within the lateral compartment, mild intrasubstance signal change of the central tibial cartilage wit hout focal defect. Within the patellofemoral compartment, no focal cartilage defect. Joint space: No joint effusion. Trace Whitney's cyst. No specific evidence of loose body identified. No suspicious enhancement. IMPRESSION: Mild patellar tendinopathy with adjacent edema. Low-grade sprain of the medial patellofemoral ligament although technically age indeterminate Trace Whitney's cyst Elsewhere, no internal derangement. Reviewed by: Hemal Sierra MD on 06/03/2020 9:25 AM PDT Approved by: Hemal Sierra MD on 06/03/2020 9:25 AM PDT Station ID: [id number]
== END 2020-05-31 16:44 | disposition home or self-care (01) ==
LOC: DI 16:43
PROVIDERS: ATTEND Family Medicine
DX: M67.962 Unspecified disorder of synovium and tendon, left lower leg (principal); S83.8X2A Sprain of other specified parts of left knee, initial encounter; M71.22 Synovial cyst of popliteal space [Baker], left knee
CPT/HCPCS: 73723; A9585